=== PATIENT | female | born 1995 | race American Indian/Alaskan Native ===

== ENCOUNTER 2018-04-12 01:30 | Emergency (ER) | payer BC ==
[~2018-04-12] VITALS: Ht 170.2 cm; Wt 92.5 kg
--- NOTE | 2018-04-12 02:00 | NUR ---
Patient ambulated with stable gait. AAxO x4. Speech is clear, able to speak in complete sentences. No neuro deficits noted. Patient walked in with c/o SI. Has a hx of depression but worsening symptoms x 2 days. Patient has plan to commit suicide by carbon monoxide poisoning. Respiratory even and unlabored. No cardiovascular distress noted, all pulses palpable. No GI/ distress noted. Patient in bed at lowest setting, side rails up x2, call light within reach. Fall precautions implemented per protocol.
[2018-04-12 02:14] LABS: *URINE HCG, QUAL NEGATIVE (NEGATIVE)
[2018-04-12 02:15] LABS: *BLOOD, URINE NEGATIVE (NEGATIVE); *CLARITY,URINE CLEAR (CLEAR); *COLOR,URINE YELLOW (YELLOW); *KETONES,URINE 4+ (NEGATIVE); *UROBILINOGEN,URINE 0.2 E.U./dl (NORMAL); LEUKOCYTE ESTERASE ,URINE NEGATIVE (NEGATIVE); NITRITE, URINE NEGATIVE (NEGATIVE); UGLUCOSE NEGATIVE (NEGATIVE)
[2018-04-12 02:15] LABS: BASOPHILS # (AUTO) 0.1 K/uL (0.0-8.0); BASOPHILS % (AUTO) 0.4 % (0.0-2.0); EOSINOPHILS % (AUTO) 0.1 % (0.0-7.0); HEMATOCRIT 42.8 % (31.2-41.9); HEMOGLOBIN 14.6 g/dL (10.9-14.3); LYMPHOCYTES # (AUTO) 2.3 K/uL (20.0-40.0); LYMPHOCYTES % (AUTO) 18.6 % (20.5-51.5); MEAN CORPUSCULAR HEMOGLOBIN 28.8 uug (24.7-32.8); MEAN CORPUSCULAR HGB CONC 34 g/dL (32.3-35.6); MEAN CORPUSCULAR VOLUME 84.5 fL (75.5-95.3); MONOCYTES # (AUTO) 1.2 K/uL (2.0-10.0); MONOCYTES % (AUTO) 9.2 % (0.0-11.0); NEUTROPHILS % (AUTO) 71.7 % (38.5-71.5); PLATELET COUNT (AUTO) 343 K/uL (179-408); RED BLOOD CELL COUNT(AUTO) 5.07 MIL/uL (3.63-4.92); WHITE BLOOD COUNT (AUTO) 12.6 K/uL (3.8-11.8)
[2018-04-12 02:19] LABS: *BILIRUBIN,URIN 1+ (NEGATIVE)
[2018-04-12 02:27] LABS: BACTERIA,URINE FEW /HPF (NONE SEEN); MUCUS,URINE MANY /LPF (0-FEW); RBC,URINE 0-3 /HPF (0-3); SQUAMOUS EPITHELIAL CELL,UR FEW /HPF (NONE SEEN); WBC,URINE 0-3 /HPF (0-3)
--- NOTE | 2018-04-12 02:33 | NUR ---
Patient in bed, security bedside for sitter. NAD
[2018-04-12 02:34] LABS: *AMPHETAMINE, URINE POSITIVE (NEGATIVE); *BARBITURATE, URINE NEGATIVE (NEGATIVE); *CANNABINOID, URINE NEGATIVE (NEGATIVE); *COCCAINE, URINE NEGATIVE (NEGATIVE); *OPIATE, URINE NEGATIVE (NEGATIVE); *PHENCYCLIDINE SCREEN,URINE NEGATIVE (NEGATIVE)
[2018-04-12 02:36] LABS: CARBON DIOXIDE 27 mmol/L (21-32); CHLORIDE 102 mmol/L (98-107); CREATININE 0.8 mg/dL (0.6-1.3); GLUCOSE 92 mg/dL (74-106); POTASSIUM 3.5 mmol/L (3.5-5.1); UREA NITROGEN, BLOOD 10 mg/dL (7-18)
[2018-04-12 02:40] LABS: ETHANOL < 3 MG/DL (0-0)
[2018-04-12 02:46] LABS: ALANINE AMINOTRANSFERASE 59 U/L (14-59); ALKALINE PHOSPHATASE 93 U/L (50-136); ASPARTATE AMINOTRANSFERASE 27 U/L (15-37); BILIRUBIN,DIRECT 0.2 mg/dL (0.0-0.2); BILIRUBIN,TOTAL 1.3 mg/dL (0.2-1.0); TOTAL PROTEIN, SERUM 8.9 g/dL (6.4-8.2)
[2018-04-12 02:52] LABS: ACETAMINOPHEN < 2.0 ug/mL (10-30)
--- NOTE | 2018-04-12 03:00 | NUR ---
Per ER MD, patient is medically clear. Phone call made to Syl Mclean. Left message on voicemail to return call. Awaiting call back.
--- NOTE | 2018-04-12 03:10 | NUR ---
Sly returned call. ETA 1 hour
--- NOTE | 2018-04-12 03:54 | NUR ---
Patient in bed, security and privacy consultant as bedside sitter. NAD.
--- NOTE | 2018-04-12 03:56 | NUR ---
Syl from PET team here at bedside for psych evaluation.
--- NOTE | 2018-04-12 04:33 | NUR ---
Patient is okay to go home per KAMRON Streeter. Taxi voucher requested.
--- NOTE | 2018-04-12 04:48 | NUR ---
Patient discharged to home in stable conditon. Written and verbal after care instructions given. Patient verbalizes understanding of instructions. Patient ambulated with stable gait. Left with taxi.
[2018-04-12 04:49] VITALS: BP 135/63
== END 2018-04-12 04:50 | disposition home or self-care (01) ==
LOC: ER 01:32
DX: Z04.6 Encounter for general psychiatric examination, requested by authority (principal); F32.9 Major depressive disorder, single episode, unspecified; R45.851 Suicidal ideations
CPT/HCPCS: 36415; 71045; 80048; 80076; 80307; 81001; 84703; 85025; 93005; 99284; G0480 ×2; G0481; A4663